=== PATIENT | male | born 1945 | race Caucasian/White ===

== ENCOUNTER 2018-02-08 11:43 | Inpatient (IN) | payer MEDICARE ==
[2018-02-08] MEDS ORDERED: SODIUM CHLORIDE 0.9% 1,000 ML IV STA (12:32)
[2018-02-08] MEDS ORDERED: PANTOPRAZOLE 40 MG/10 ML VIAL IVP STA (12:32)
--- NOTE | 2018-02-08 12:35 | ED ---
General Adult HPI - General Chief complaint: Recheck/Abnormal Lab/Rx Stated complaint: Dehydration Time Seen by Provider: 02/08/18 12:00 Source: patient, RN notes reviewed Mode of arrival: wheelchair Limitations: no limitations - History of Present Illness Initial comments: This is a 72-year-old male who presents emergency department with past medical history of anemia. Patient comes in today because since Tuesday has been extremely lightheaded especially anytime he gets up and walks. Patient states also when he gets up and walks she's short of breath. Patient states he does have a history of anemia and he has noted his stools have been black recently. Patient denies any chest pain but has felt his heart race when he stands up. Patient denies any recent fever chills or cough. Patient denies any headache patient denies numbness weakness. Patient denies abdominal pain patient denies any nausea vomiting or diarrhea. - Related Data Home Medications Medication Instructions Recorded Confirmed Lisinopril [Zestril] 10 mg PO DAILY 08/16/14 02/08/18 Simvastatin [Zocor] 20 mg PO QAM 08/16/14 02/08/18 amLODIPine BESYLATE [Norvasc] 5 mg PO QAM 08/16/14 02/08/18 Allergies Allergy/AdvReac Type Severity Reaction Status Date / Time Sulfa (Sulfonamide Allergy "BLEEDING" Verified 02/08/18 12:57 Antibiotics) Review of Systems ROS Statement: Those systems with pertinent positive or pertinent negative responses have been documented in the HPI. ROS Other: All systems not noted in ROS Statement are negative. Past Medical History Past Medical History: Asthma, GERD/Reflux, Hyperlipidemia, Hypertension Additional Past Medical History / Comment(s): GRACIA'S ESOPHAGUS, Hx. of ANEMIA , History of Any Multi-Drug Resistant Organisms: None Reported Past Surgical History: Cholecystectomy, Tonsillectomy Additional Past Surgical History / Comment(s): HAD PROCEDURES AT [facility] FOR TX OF GRACIA'S ESOPHAGUS-CARINE fundoplication, hydrocele surgery,, Past Anesthesia/Blood Transfusion Reactions: No Reported Reaction Additional Past Anesthesia/Blood Transfusion Reaction / Comment(s): STATED "TWICE AFTER PROCEDURES TO TX GRACIA'S ESOPHAGUS AT [facility] HAD FEELINGS OF BEING HOT AND COLD"-mild per pt Past Psychological History: No Psychological Hx Reported Smoking Status: Former smoker Past Alcohol Use History: Daily Past Drug Use History: None Reported - Past Family History Father Family Medical History: Cancer Additional Family Medical History / Comment(s): colon Mother Family Medical History: Coronary Artery Disease (CAD), CVA/TIA Brother(s) Family Medical History: Cancer General Exam - General Exam Comments Initial Comments: GENERAL: Patient is well-developed and well-nourished. Patient is nontoxic and well- hydrated and is in mild distress. ENT: Neck is soft and supple. No significant lymphadenopathy is noted. Oropharynx is clear. Moist mucous membranes. EYES: Patient's conjunctiva. Extraocular movements were intact and pupils were equal round and reactive to light. Eyelids were unremarkable. PULMONARY: Unlabored respirations. Good breath sounds bilaterally. No audible rales rhonchi or wheezing was noted. CARDIOVASCULAR: Patient's heart rate is tachycardic ABDOMEN: Soft and nontender with normal bowel sounds. No palpable organomegaly was noted. There is no palpable pulsatile mass. SKIN: Patient's skin is pale. NEUROLOGIC: Patient is alert and oriented x3. Cranial nerves II through XII are grossly intact. Motor and sensory are also intact. Normal speech, volume and content. Symmetrical smile. MUSCULOSKELETAL: Normal extremities with adequate strength and full range of motion. No lower extremity swelling or edema. No calf tenderness. LYMPHATICS: No significant lymphadenopathy is noted PSYCHIATRIC: Normal psychiatric evaluation. Limitations: no limitations Course Vital Signs 02/08/18 02/08/18 02/08/18 12:10 12:13 13:13 Temperature 97.5 F L 98.0 F Pulse Rate 115 H 83 111 H Respiratory 18 18 22 Rate Blood Pressure 68/51 103/60 101/57 O2 Sat by Pulse 96 100 100 Oximetry Medical Decision Making - Medical Decision Making EKG shows normal sinus rhythm at 95 bpm NH interval 170 QRS is 92 QT interval 342 QTC is 429. Patient's EKG shows no ST segment elevation or depression or T wave abnormalities I received laboratory results from November 21 in the patient's hemoglobin at that time was 14.8 Patient received 1 unit of packed red blood cells. I spoke with Dr. heard he agreed to admit the patient admitted the patient I consult the GI and I did serial CBCs. - Lab Data Result diagrams: 02/08/18 12:34 02/08/18 12:34 Lab Results 02/08/18 02/08/1802/08/18 Range/Units 12:34 12:34 12:34 WBC 23.6 H (3.8-10.6) k/uL RBC 2.67 L (4.30-5.90) m/uL Hgb 7.9 L (13.0-17.5) gm/dL Hct 23.7 L (39.0-53.0) % MCV 88.6 (80.0-100.0) fL MCH 29.6 (25.0-35.0) pg MCHC 33.4 (31.0-37.0) g/dL RDW 14.0 (11.5-15.5) % Plt Count 328 (150-450) k/uL Neutrophils % 84 % Lymphocytes % 10 % Monocytes % 5 % Eosinophils % 0 % Basophils % 0 % Neutrophils # 19.9 H (1.3-7.7) k/uL Lymphocytes # 2.3 (1.0-4.8) k/uL Monocytes # 1.2 H (0-1.0) k/uL Eosinophils # 0.1 (0-0.7) k/uL Basophils # 0.0 (0-0.2) k/uL PT (9.0-12.0) sec INR (<1.2) APTT (22.0-30.0) sec Sodium (137-145) mmol/L Potassium (3.5-5.1) mmol/L Chloride (98-107) mmol/L Carbon Dioxide (22-30) mmol/L Anion Gap mmol/L BUN (9-20) mg/dL Creatinine (0.66-1.25) mg/dL Est GFR (CKD-EPI)AfAm (>60 ml/min/1.73 sqM) Est GFR (CKD-EPI)NonAf (>60 ml/min/1.73 sqM) Glucose (74-99) mg/dL Calcium (8.4-10.2) mg/dL Magnesium (1.6-2.3) mg/dL Total Bilirubin (0.2-1.3) mg/dL AST (17-59) U/L ALT (21-72) U/L Alkaline Phosphatase (38-126) U/L Total Creatine Kinase 23 L (55-170) U/L CK-MB (CK-2) 0.6 (0.0-2.4) ng/mL CK-MB (CK-2) Rel Index 2.6 Troponin I <0.012 (0.000-0.034) ng/mL Total Protein (6.3-8.2) g/dL Albumin (3.5-5.0) g/dL Stool Occult Blood (Negative) Blood Type B Positive Blood Type Recheck No Antibody Screen NEGATIVE Crossmatch See Detail Spec Expiration Date 02/11/2018233302/08/18 02/08/18 02/08/18 Range/Units 12:34 12:34 13:20 WBC (3.8-10.6) k/uL RBC (4.30-5.90) m/uL Hgb (13.0-17.5) gm/dL Hct (39.0-53.0) % MCV (80.0-100.0) fL MCH (25.0-35.0) pg MCHC (31.0-37.0) g/dL RDW (11.5-15.5) % Plt Count (150-450) k/uL Neutrophils % % Lymphocytes % % Monocytes % % Eosinophils % % Basophils % % Neutrophils # (1.3-7.7) k/uL Lymphocytes # (1.0-4.8) k/uL Monocytes # (0-1.0) k/uL Eosinophils # (0-0.7) k/uL Basophils # (0-0.2) k/uL PT 10.6 (9.0-12.0) sec INR 1.1 (<1.2) APTT 18.2 L (22.0-30.0) sec Sodium 143 (137-145) mmol/L Potassium 4.3 (3.5-5.1) mmol/L Chloride 102 (98-107) mmol/L Carbon Dioxide 18 L (22-30) mmol/L Anion Gap 23 mmol/L BUN 48 H (9-20) mg/dL Creatinine 0.90 (0.66-1.25) mg/dL Est GFR (CKD-EPI)AfAm >90 (>60 ml/min/1.73 sqM) Est GFR (CKD-EPI)NonAf 85 (>60 ml/min/1.73 sqM) Glucose 225 H (74-99) mg/dL Calcium 9.2 (8.4-10.2) mg/dL Magnesium 2.1 (1.6-2.3) mg/dL Total Bilirubin 0.1 L (0.2-1.3) mg/dL AST 20 (17-59) U/L ALT 22 (21-72) U/L Alkaline Phosphatase 47 (38-126) U/L Total Creatine Kinase (55-170) U/L CK-MB (CK-2) (0.0-2.4) ng/mL CK-MB (CK-2) Rel Index Troponin I (0.000-0.034) ng/mL Total Protein 5.8 L (6.3-8.2) g/dL Albumin 3.9 (3.5-5.0) g/dL Stool Occult Blood Positive (Negative) Blood Type Blood Type Recheck Antibody Screen Crossmatch Spec Expiration Date Critical Care Time Critical Care Time: Yes Total Critical Care Time: 35 Disposition Clinical Impression: Anemia, Near syncope, GI bleed Disposition: ADMITTED IP TO THIS [facility] Referrals: Salas Tolbert MD [Primary Care Provider] - 1-2 days Time of Disposition: 13:48
[2018-02-08 12:58] LABS: Basophils % (A) 0 %; Eosinophils # (A) 0.1 k/uL (0-0.7); Eosinophils % (A) 0 %; HCT 23.7 % (39.0-53.0); HGB 7.9 gm/dL (13.0-17.5); Lymphocytes # (A) 2.3 k/uL (1.0-4.8); Lymphocytes % (A) 10 %; MCH 29.6 pg (25.0-35.0); MCHC 33.4 g/dL (31.0-37.0); MCV 88.6 fL (80.0-100.0); Mean Platelet Volume 8.7; Monocytes # (A) 1.2 k/uL (0-1.0); Monocytes % (A) 5 %; Neutrophils # (A) 19.9 k/uL (1.3-7.7); Neutrophils % (A) 84 %; Platelet Count 328 k/uL (150-450); RBC 2.67 m/uL (4.30-5.90); WBC 23.6 k/uL (3.8-10.6)
[2018-02-08 13:03] LABS: ALT 22 U/L (21-72); AST 20 U/L (17-59); Albumin 3.9 g/dL (3.5-5.0); Alkaline Phosphatase 47 U/L (38-126); Anion Gap 23 mmol/L; Blood Urea Nitrogen 48 mg/dL (9-20); Calcium 9.2 mg/dL (8.4-10.2); Carbon Dioxide 18 mmol/L (22-30); Chloride 102 mmol/L (98-107); Glucose 225 mg/dL (74-99); Magnesium 2.1 mg/dL (1.6-2.3); Potassium 4.3 mmol/L (3.5-5.1); Sodium 143 mmol/L (137-145); Total Bilirubin 0.1 mg/dL (0.2-1.3); Total Protein 5.8 g/dL (6.3-8.2)
[2018-02-08 13:10] LABS: INR 1.1 (<1.2); Prothrombin Time 10.6 sec (9.0-12.0)
[2018-02-08 13:13] LABS: Creatine Kinase 23 U/L (55-170)
[2018-02-08 13:22] LABS: Partial Thromboplastin Time 18.2 sec (22.0-30.0)
[2018-02-08 13:26] LABS: Creatine Kinase MB 0.6 ng/mL (0.0-2.4); Troponin I <0.012 ng/mL (0.000-0.034)
[2018-02-08] MEDS ORDERED: SODIUM CHLORIDE 0.9% 1,000 ML IV ONE (13:43)
[2018-02-08] MEDS ORDERED: ACETAMINOPHEN TAB 325 MG TAB PO PRN (15:16)
[2018-02-08] MEDS ORDERED: NALOXONE 0.4 MG/ML 1 ML VIAL IV PRN (15:16)
[2018-02-08] MEDS ORDERED: ONDANSETRON 4 MG/2 ML VIAL IVP PRN (15:16)
--- NOTE | 2018-02-08 15:31 | P.HPIM ---
History of Present Illness H&P Date: 02/08/18 Chief Complaint: Weakness 72-year-old male with history of multiple medical problems including hypertension and hyperlipidemia, presented to emergency department because of 2- 3 days history of general weakness, feeling tired the whole time, palpitations, shortness of breath and feeling dizzy. Dizziness is like a lightheadedness sensation and it occurs anytime he gets up and walks. He also had some intermittent left-sided chest pain as well. Since Tuesday he had 2 bowel movements that were black. He also felt slightly nauseous but no vomiting. No abdominal pain. No diarrhea. No recent fevers or chills, no cough. Patient denies any recent fever chills or cough. No focal weakness or numbness. Review of Systems 12 point review of system performed, negative except HPI Past Medical History Past Medical History: Asthma, GERD/Reflux, Hyperlipidemia, Hypertension Additional Past Medical History / Comment(s): GRACIA'S ESOPHAGUS, Hx. of ANEMIA , History of Any Multi-Drug Resistant Organisms: None Reported Past Surgical History: Cholecystectomy, Tonsillectomy Additional Past Surgical History / Comment(s): HAD PROCEDURES AT [facility] FOR TX OF GRACIA'S ESOPHAGUS ablation/dilation. Followed by CARINE fundoplication, hydrocele surgery, Past Anesthesia/Blood Transfusion Reactions: No Reported Reaction Additional Past Anesthesia/Blood Transfusion Reaction / Comment(s): STATED "TWICE AFTER PROCEDURES TO TX GRACIA'S ESOPHAGUS AT [facility] HAD FEELINGS OF BEING HOT AND COLD"-mild per pt Past Psychological History: No Psychological Hx Reported Smoking Status: Former smoker Past Alcohol Use History: Daily Past Drug Use History: None Reported - Past Family History Father Family Medical History: Cancer Additional Family Medical History / Comment(s): colon Mother Family Medical History: Coronary Artery Disease (CAD), CVA/TIA Brother(s) Family Medical History: Cancer Medications and Allergies Home Medications Medication Instructions Recorded Confirmed Type Lisinopril [Zestril] 10 mg PO DAILY 08/16/14 02/08/18 History Simvastatin [Zocor] 20 mg PO QAM 08/16/14 02/08/18 History amLODIPine BESYLATE [Norvasc] 5 mg PO QAM 08/16/14 02/08/18 History Allergies Allergy/AdvReac Type Severity Reaction Status Date / Time Sulfa (Sulfonamide Allergy "BLEEDING" Verified 02/08/18 12:57 Antibiotics) Physical Exam Vitals: Vital Signs Temp Pulse Resp BP Pulse Ox 02/08/18 14:59 98.8 F 82 20 98/56 98 02/08/18 14:29 989.9 F H 89 20 100/56 02/08/18 14:19 97.6 F 88 18 103/55 100 02/08/18 14:00 88 20 98/54 99 02/08/18 13:13 98.0 F 111 H 22 101/57 100 02/08/18 12:13 83 18 103/60 100 02/08/18 12:10 97.5 F L 115 H 18 68/51 96 Intake and Output 02/08/18 02/08/18 02/08/18 06:59 14:59 22:59 Intake Total 0 Balance 0 Intake: Blood Product 0 Rc As-1 Unit 0 [id number] Other: Weight 69.4 kg Constitutional: No acute distress, conversant, pleasant Eyes:Anicteric sclerae, moist conjunctiva, no lid-lag, PERRLA, ENMT: Oropharynx clear, no erythema, exudates Neck: Supple, FROM, no masses, or JVD, No carotid bruits, No thyromegaly Lungs: Clear to auscultation, Clear to percussion, Normal respiratory effort, no accessory muscle use Cardiovascular: Heart regular in rate and rhythm, No murmurs, gallops, or rubs, No peripheral edema Abdominal: Soft, Nontender, no guarding, rebound or rigidity, Normoactive bowel sounds, No hepatomegaly, No splenomegaly, No palpable mass Skin: Normal temperature, tone, texture, turgor, no induration, No subcutaneous nodules, No rash, lesions, No ulcers Extremities: No digital cyanosis, No clubbing, Pedal pulses intact and symmetrical, Radial pulses intact and symmetrical, No calf tenderness Psychiatric: Alert and oriented to person, place and time, appropriate affect, intact judgement Neuro: Muscles Strength 5/5 in all 4 extremities, Sensation to light touch grossly present throughout, Cranial nerves II-XII grossly intact, no focal sensory deficits Results CBC & Chem 7: 02/08/18 12:34 02/08/18 12:34 Labs: Abnormal Lab Results - Last 24 Hours (Table) 02/08/18 02/08/18 02/08/18 Range/Units 12:34 12:34 12:34 WBC 23.6 H (3.8-10.6) k/uL RBC 2.67 L (4.30-5.90) m/uL Hgb 7.9 L (13.0-17.5) gm/dL Hct 23.7 L (39.0-53.0) % Neutrophils # 19.9 H (1.3-7.7) k/uL Monocytes # 1.2 H (0-1.0) k/uL APTT (22.0-30.0) sec Carbon Dioxide (22-30) mmol/L BUN (9-20) mg/dL Glucose (74-99) mg/dL Total Bilirubin (0.2-1.3) mg/dL Total Creatine Kinase 23 L (55-170) U/L Total Protein (6.3-8.2) g/dL Crossmatch See Detail 02/08/18 02/08/18 Range/Units 12:34 12:34 WBC (3.8-10.6) k/uL RBC (4.30-5.90) m/uL Hgb (13.0-17.5) gm/dL Hct (39.0-53.0) % Neutrophils # (1.3-7.7) k/uL Monocytes # (0-1.0) k/uL APTT 18.2 L (22.0-30.0) sec Carbon Dioxide 18 L (22-30) mmol/L BUN 48 H (9-20) mg/dL Glucose 225 H (74-99) mg/dL Total Bilirubin 0.1 L (0.2-1.3) mg/dL Total Creatine Kinase (55-170) U/L Total Protein 5.8 L (6.3-8.2) g/dL Crossmatch Assessment and Plan Plan: Acute GI bleeding/acute blood loss anemia Source is unknown Currently being transfused 1 unit of blood, follow hemoglobin after that to assess for need for more blood. Consult GI IV fluids Cycle H&H Protonic 40 mg IV twice a day Chest pain/shortness of breath Check troponin stat EKG reviewed, no signs of ischemia Hypertension/hyperlipidemia Patient is nothing by mouth, hold meds We'll treat hypertension with IV medications if needed
[2018-02-08] MEDS: SODIUM CHLORIDE 0.9% 1,000 ML IV SCH (20:39)
[2018-02-08 21:00] LABS: Basophils % (A) 0 %; Eosinophils # (A) 0.1 k/uL (0-0.7); Eosinophils % (A) 0 %; HCT 24.6 % (39.0-53.0); HGB 8.3 gm/dL (13.0-17.5); Lymphocytes # (A) 1.5 k/uL (1.0-4.8); Lymphocytes % (A) 10 %; MCH 30.5 pg (25.0-35.0); MCV 89.6 fL (80.0-100.0); Monocytes # (A) 0.7 k/uL (0-1.0); Monocytes % (A) 4 %; Neutrophils # (A) 13.2 k/uL (1.3-7.7); Neutrophils % (A) 85 %; Platelet Count 225 k/uL (150-450); RBC 2.74 m/uL (4.30-5.90); RDW 14.4 % (11.5-15.5); WBC 15.5 k/uL (3.8-10.6)
[2018-02-08] MEDS: PANTOPRAZOLE 40 MG/10 ML VIAL IV SCH (21:19)
[2018-02-09 02:20] LABS: Basophils % (A) 0 %; Eosinophils % (A) 0 %; HCT 21.8 % (39.0-53.0); HGB 7.4 gm/dL (13.0-17.5); Lymphocytes # (A) 1.8 k/uL (1.0-4.8); Lymphocytes % (A) 14 %; MCHC 33.8 g/dL (31.0-37.0); MCV 88.7 fL (80.0-100.0); Mean Platelet Volume 9.1; Monocytes # (A) 0.8 k/uL (0-1.0); Monocytes % (A) 6 %; Neutrophils # (A) 10.7 k/uL (1.3-7.7); Neutrophils % (A) 79 %; Platelet Count 194 k/uL (150-450); RBC 2.45 m/uL (4.30-5.90); RDW 14.6 % (11.5-15.5); WBC 13.5 k/uL (3.8-10.6)
[2018-02-09 03:00] LABS: ALT 23 U/L (21-72); AST 15 U/L (17-59); Albumin 2.8 g/dL (3.5-5.0); Alkaline Phosphatase 34 U/L (38-126); Anion Gap 8 mmol/L; Blood Urea Nitrogen 28 mg/dL (9-20); Calcium 8.3 mg/dL (8.4-10.2); Carbon Dioxide 23 mmol/L (22-30); Chloride 109 mmol/L (98-107); Glucose 123 mg/dL (74-99); Magnesium 2.2 mg/dL (1.6-2.3); Phosphorus 3.4 mg/dL (2.5-4.5); Potassium 4.1 mmol/L (3.5-5.1); Sodium 140 mmol/L (137-145); Total Bilirubin <0.1 mg/dL (0.2-1.3); Total Protein 4.7 g/dL (6.3-8.2)
[2018-02-09] MEDS: SODIUM CHLORIDE 0.9% 1,000 ML IV SCH ×3 (03:00→19:56)
[2018-02-09 06:13] LABS: Basophils % (A) 0 %; Eosinophils % (A) 0 %; HCT 21.8 % (39.0-53.0); HGB 7.2 gm/dL (13.0-17.5); Lymphocytes # (A) 1.8 k/uL (1.0-4.8); Lymphocytes % (A) 14 %; MCH 29.9 pg (25.0-35.0); MCV 90.5 fL (80.0-100.0); Mean Platelet Volume 7.9; Monocytes # (A) 0.8 k/uL (0-1.0); Monocytes % (A) 7 %; Neutrophils # (A) 10.1 k/uL (1.3-7.7); Neutrophils % (A) 78 %; Platelet Count 201 k/uL (150-450); RBC 2.41 m/uL (4.30-5.90); RDW 14.7 % (11.5-15.5)
[2018-02-09] MEDS: PANTOPRAZOLE 40 MG/10 ML VIAL IV SCH ×2 (08:05→19:56)
--- NOTE | 2018-02-09 09:48 | P.CONS ---
History of Present Illness - Reason for Consult Consult date: 02/09/18 Anemia melena Requesting physician: Kitty Cali - History of Present Illness 72-year-old male with a history of Inés fundal dictation, Gracia's esophagus ablation therapy [facility], anemia, asthma, diaphragmatic hernia repair presents with black colored bowel movements for the last 2 days as well as increased weakness lightheadedness. Patient noticed 2 days ago passage of dark near black bowel movements. Denies hematemesis or hematochezia. Last EGD 18 months ago performed by Dr. Vickers. No NSAIDs. Drinks a few beers daily. Last colonoscopy 2013 at [facility] perform a Dr. Jones to his memory was normal recommend rescreening in 2019. Review of medical records [facility] [place] [facility] hemoglobin was 14.8 on 09/2018. MCV 91. Platelet 299. Admission hemoglobin 7.9 presently 7.2. BUN 28. Creatinine 0.7. He's received 1 unit of blood. Denies abdominal pain fever chills or weight loss. Review of Systems Constitutional: Denies fever, chills, sweats, weight gain, or loss. Reports lightheadedness dizziness weakness. HEENT: Negative for migraines, blurred vision or loss, earaches, drainage, tinnitus, oral mucosal lesions, dysphagia, or odynophagia. Cardiac: Negative for chest pain, arrhythmias, or palpitation. Respiratory: Asthma. Negative for shortness of breath, hemoptysis, cough, or sputum production. Gastrointestinal: See HPI for pertinent findings. Genitourinary: Negative for hematuria, urgency, frequency, polyuria, dysuria, or penile discharge. Musculoskeletal: Negative for muscle aches, swelling, arthritis, and arthralgias. Neurologic: Negative for stroke or TIA. Endocrine: Negative for thyroid problems. Skin: Negative for rash or itching. Psychiatric: Negative history for depression and anxiety Past Medical History Past Medical History: Asthma, GERD/Reflux, Hyperlipidemia, Hypertension, Prostate Disorder Additional Past Medical History / Comment(s): GRACIA'S ESOPHAGUS,recurrent diaphragmatic hernia,Hx of ANEMIA,past gout,beginnings of cataracts History of Any Multi-Drug Resistant Organisms: None Reported Past Surgical History: Cholecystectomy, Tonsillectomy Additional Past Surgical History / Comment(s): AT [facility] FOR TX OF GRACIA'S ESOPHAGUS (ablation/dilation).diaphragmatic hernia/ INÉS fundoplication, hydrocele surgery,2015 had lap lysis of adhesions ,takedown of inés funoplasty ,lap paraesophageal diapragmatic hernia repair,lap inés fundplasty.egd Past Anesthesia/Blood Transfusion Reactions: No Reported Reaction Additional Past Anesthesia/Blood Transfusion Reaction / Comm: STATED "TWICE AFTER PROCEDURES TO TX GRACIA'S ESOPHAGUS AT [facility] HAD FEELINGS OF BEING HOT AND COLD"-mild per pt Smoking Status: Former smoker - Past Family History Father Family Medical History: Cancer Additional Family Medical History / Comment(s): colon Mother Family Medical History: Coronary Artery Disease (CAD), CVA/TIA Brother(s) Family Medical History: Cancer Medications and Allergies Home Medications Medication Instructions Recorded Confirmed Type Lisinopril [Zestril] 10 mg PO DAILY 08/16/14 02/08/18 History Simvastatin [Zocor] 20 mg PO QAM 08/16/14 02/08/18 History amLODIPine BESYLATE [Norvasc] 5 mg PO QAM 08/16/14 02/08/18 History Allergies Allergy/AdvReac Type Severity Reaction Status Date / Time Sulfa (Sulfonamide Allergy "BLEEDING" Verified 02/08/18 12:57 Antibiotics) Physical Exam Vitals: Vital Signs Temp Pulse Pulse Resp BP BP Pulse Ox 02/09/18 04:00 98.4 F 71 18 110/59 97 02/09/18 00:00 67 18 106/55 100 02/08/18 20:00 98.6 F 69 18 103/56 95 02/08/18 18:29 76 18 117/69 100 02/08/18 17:30 99.0 F 81 20 98/56 02/08/18 14:59 98.8 F 82 20 98/56 98 02/08/18 14:29 989.9 F H 89 20 100/56 02/08/18 14:19 97.6 F 88 18 103/55 100 02/08/18 14:00 88 20 98/54 99 02/08/18 13:13 98.0 F 111 H 22 101/57 100 02/08/18 12:13 83 18 103/60 100 02/08/18 12:10 97.5 F L 115 H 18 68/51 96 Intake and Output 02/08/18 02/09/1802/09/18 22:59 06:59 14:59 Intake Total 310 Output Total 250 Balance 310 -250 Intake: Blood Product 310 Rc As-1 Unit 310 [id number] Output: Urine 250 Other: Voiding Method Urinal Urinal # Voids 1 0 # Bowel Movements 0 Weight 69.5 kg General appearance: The patient is alert, oriented, in no acute distress. HET: Head is normocephalic and atraumatic. Pupils are equal and reactive. Oropharynx is clear without lesions. Neck: Supple without lymphadenopathy. Trachea midline. Heart: S1 S2. Regular rate and rhythm. Lungs: No crackles or wheezes are heard. Abdomen: Soft, nontender, nondistended with bowel sounds. No peritoneal signs. No palpable organomegaly or masses. Extremities: Normal skin color and turgor. No cyanosis, rash, ulceration, clubbing, or edema. Radial and pedal pulses are 2/4 bilaterally. Neurological: No focal deficits. Strength and sensation are grossly intact. Results CBC & Chem 7: 02/09/18 05:40 02/09/18 02:05 Labs: Abnormal Lab Results - Last 24 Hours (Table) 02/08/18 02/08/18 02/08/18 Range/Units 12:34 12:34 12:34 WBC 23.6 H (3.8-10.6) k/uL RBC 2.67 L (4.30-5.90) m/uL Hgb 7.9 L (13.0-17.5) gm/dL Hct 23.7 L (39.0-53.0) % Neutrophils # 19.9 H (1.3-7.7) k/uL Monocytes # 1.2 H (0-1.0) k/uL APTT (22.0-30.0) sec Chloride (98-107) mmol/L Carbon Dioxide (22-30) mmol/L BUN (9-20) mg/dL Glucose (74-99) mg/dL Calcium (8.4-10.2) mg/dL Total Bilirubin (0.2-1.3) mg/dL AST (17-59) U/L Alkaline Phosphatase (38-126) U/L Total Creatine Kinase 23 L (55-170) U/L Total Protein (6.3-8.2) g/dL Albumin (3.5-5.0) g/dL Crossmatch See Detail 02/08/18 02/08/18 02/08/18 Range/Units 12:34 12:34 20:19 WBC 15.5 H (3.8-10.6) k/uL RBC 2.74 L (4.30-5.90) m/uL Hgb 8.3 L (13.0-17.5) gm/dL Hct 24.6 L (39.0-53.0) % Neutrophils # 13.2 H (1.3-7.7) k/uL Monocytes # (0-1.0) k/uL APTT 18.2 L (22.0-30.0) sec Chloride (98-107) mmol/L Carbon Dioxide 18 L (22-30) mmol/L BUN 48 H (9-20) mg/dL Glucose 225 H (74-99) mg/dL Calcium (8.4-10.2) mg/dL Total Bilirubin 0.1 L (0.2-1.3) mg/dL AST (17-59) U/L Alkaline Phosphatase (38-126) U/L Total Creatine Kinase (55-170) U/L Total Protein 5.8 L (6.3-8.2) g/dL Albumin (3.5-5.0) g/dL Crossmatch 02/09/18 02/09/18 02/09/18 Range/Units 02:05 02:05 05:40 WBC 13.5 H 13.0 H (3.8-10.6) k/uL RBC 2.45 L 2.41 L (4.30-5.90) m/uL Hgb 7.4 L 7.2 L (13.0-17.5) gm/dL Hct 21.8 L 21.8 L (39.0-53.0) % Neutrophils # 10.7 H 10.1 H (1.3-7.7) k/uL Monocytes # (0-1.0) k/uL APTT (22.0-30.0) sec Chloride 109 H (98-107) mmol/L Carbon Dioxide (22-30) mmol/L BUN 28 H (9-20) mg/dL Glucose 123 H (74-99) mg/dL Calcium 8.3 L (8.4-10.2) mg/dL Total Bilirubin <0.1 L (0.2-1.3) mg/dL AST 15 L (17-59) U/L Alkaline Phosphatase 34 L (38-126) U/L Total Creatine Kinase (55-170) U/L Total Protein 4.7 L (6.3-8.2) g/dL Albumin 2.8 L (3.5-5.0) g/dL Crossmatch Assessment and Plan (1) GI bleed Narrative/Plan: possible peptic ulcer disease possible erosive gastritis esophagitis Current Visit: Yes Status: Acute Code(s): K92.2 - GASTROINTESTINAL HEMORRHAGE, UNSPECIFIED SNOMED Code(s): 87673976 (2) Acute blood loss anemia Current Visit: Yes Status: Acute Code(s): D62 - ACUTE POSTHEMORRHAGIC ANEMIA SNOMED Code(s): 789716174 (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 EGD evaluation. Protonix 40 mg twice daily. CBC monitoring. The hair colorist has discussed the risks, benefits and alternative therapies for the above-mentioned procedure and for both sedation/analgesia as well as necessary blood product administration, if indicated, as they pertain to this patient. The patient has indicated understanding and acceptance of the risks and procedures discussed. Thank you for this kind referral and the opportunity to participate in the care of your patient. This consultation was discussed with Dr. Goldberg. The impression and plan of care have been directed as dictated.
[2018-02-09 14:32] LABS: Basophils % (A) 0 %; Eosinophils % (A) 0 %; HGB 7.1 gm/dL (13.0-17.5); Lymphocytes % (A) 18 %; MCH 30.7 pg (25.0-35.0); MCV 90.5 fL (80.0-100.0); Mean Platelet Volume 7.5; Monocytes # (A) 0.6 k/uL (0-1.0); Monocytes % (A) 6 %; Neutrophils # (A) 8.2 k/uL (1.3-7.7); Neutrophils % (A) 75 %; Platelet Count 206 k/uL (150-450); RBC 2.32 m/uL (4.30-5.90); RDW 15.1 % (11.5-15.5)
--- NOTE | 2018-02-09 15:18 | P.PN ---
Subjective Progress Note Date: 02/09/18 (Delayed charting patient seen at approximately 9 AM) Principal diagnosis: Melena Patient is a 72-year-old male past medical history of Louis's esophagus status post ablation, GERD status post Al fundoplication 2 not currently on any medications, prior GI bleed, hypertension, and asthma who presented to the emergency department with complaints of lightheaded and dizziness. In the ER he underwent an extensive evaluation. On arrival he was tachycardic with a pulse of 1:15 and hypotensive the blood pressure of 68/51. Initial laboratory analysis revealed slight leukocytosis at 15.5 with a hemoglobin of 8.3. Otherwise laboratory analysis was within normal limits. He was transfused 1 unit of packed red blood cells on IV proton aches. He was admitted to the selective care unit for further monitoring. His symptoms resolved despite having slightly lower hemoglobin after 1 unit of packed red cells. Patient seen and examined at bedside. He denies any chest pain, shortness of breath, nausea, or vomiting. He does not feel lightheaded or dizzy. He states last and had a GI bleed was due to Louis's esophagus has not seen Dr. Rodriguez Or Ned in the past. Dr. Vickers performed two Al fundoplications but those were years ago. He has no other complaints currently. Objective - Vital Signs Vital signs: Vital Signs Temp 98.4 F 02/09/18 04:00 Pulse 69 02/09/18 12:00 Resp 17 02/09/18 12:00 BP 110/58 02/09/18 12:00 Pulse Ox 98 02/09/18 12:00 Intake & Output 02/08/18 02/09/18 02/09/18 18:59 06:59 18:59 Intake Total 310 Output Total 250 300 Balance 310 -250 -300 Weight 69.4 kg 69.5 kg Intake: Blood Product 310 Rc As-1 Unit 310 [id number] Output: Urine 250 300 Other: Voiding Method Urinal # Voids 1 0 1 # Bowel Movements 0 0 - Exam General: non toxic, no distress, appears at stated age, pleasant Derm: warm, dry Head: atraumatic, normocephalic, symmetric Eyes: EOMI, no lid lag, anicteric sclera Mouth: no lip lesion, mucus membranes moist Cardiovascular: S1S2 reg, no murmur, positive posterior tibial pulse bilateral, Lungs: CTA bilateral, no rhonchi, no rales , no accessory muscle use Abdominal: soft, nontender to palpation, no guarding, no appreciable organomegaly Ext: no gross muscle atrophy, no edema, no contractures Neuro: CN II-XI grossly intact, no focal neuro deficits Psych: Alert, oriented, appropriate affect - Labs CBC & Chem 7: 02/09/18 14:09 02/09/18 02:05 Labs: Abnormal Lab Results - Last 24 Hours (Table) 02/08/18 02/08/18 02/09/18 Range/Units 12:34 20:19 02:05 WBC 15.5 H 13.5 H (3.8-10.6) k/uL RBC 2.74 L 2.45 L (4.30-5.90) m/uL Hgb 8.3 L 7.4 L (13.0-17.5) gm/dL Hct 24.6 L 21.8 L (39.0-53.0) % Neutrophils # 13.2 H 10.7 H (1.3-7.7) k/uL Chloride (98-107) mmol/L BUN (9-20) mg/dL Glucose (74-99) mg/dL Calcium (8.4-10.2) mg/dL Total Bilirubin (0.2-1.3) mg/dL AST (17-59) U/L Alkaline Phosphatase (38-126) U/L Total Protein (6.3-8.2) g/dL Albumin (3.5-5.0) g/dL Crossmatch See Detail 02/09/18 02/09/18 02/09/18 Range/Units 02:05 05:40 14:09 WBC 13.0 H 11.0 H (3.8-10.6) k/uL RBC 2.41 L 2.32 L (4.30-5.90) m/uL Hgb 7.2 L 7.1 L (13.0-17.5) gm/dL Hct 21.8 L 21.0 L (39.0-53.0) % Neutrophils # 10.1 H 8.2 H (1.3-7.7) k/uL Chloride 109 H (98-107) mmol/L BUN 28 H (9-20) mg/dL Glucose 123 H (74-99) mg/dL Calcium 8.3 L (8.4-10.2) mg/dL Total Bilirubin <0.1 L (0.2-1.3) mg/dL AST 15 L (17-59) U/L Alkaline Phosphatase 34 L (38-126) U/L Total Protein 4.7 L (6.3-8.2) g/dL Albumin 2.8 L (3.5-5.0) g/dL Crossmatch Assessment and Plan Assessment: GI bleed -Continue with Protonix -Nothing by mouth -Serial H&H -Await GI consultation Acute blood loss anemia due to above-symptomatic -Status post 1 unit packed red blood cells -Continue with serial H&H Hypertension -Norvasc and lisinopril on hold due to low blood pressure ER Dyslipidemia -Statin on hold due to nothing by mouth status History of Louis's esophagus -GI recommendations DVT prophylaxis: SCDs Discussed with: Patient, nursing Anticipated discharge: 2-[address]: home A total of 35 minutes was spent on the care of this complex patient more than 50 % of the time was spent in counseling and care coordination.
[2018-02-09] MEDS ORDERED: PROPOFOL 10 MG/ML 20 ML VIAL IV ONE (15:48)
[2018-02-09] MEDS ORDERED: LIDOCAINE 1% INJ 10MG/ML (20 ML MDV) ONE (15:48)
[2018-02-09] MEDS ORDERED: IV FLUID CONTINUATION 950 ML IV ONE (15:52)
--- NOTE | 2018-02-09 16:33 | P.PCN ---
Date of Procedure: 02/09/18 Procedure(s) Performed: Procedure: Esophagogastroduodenoscopy and biopsy. Preoperative diagnosis: GI bleeding. Postoperative diagnosis: 1. Mild gastritis and duodenitis but no ulcers or active bleeding. 2. Long segment of Louis's esophagus with no obvious ulcers or strictures. Preparation sedation: Was provided by anesthesia. Brief clinical history: The patient is a 72-year-old male with history of Al fundoplication, Louis's esophagus S/P ablation therapy, anemia, asthma , and diaphragmatic hernia repair presents with black colored bowel movements for the last 2 days as well as increased weakness and lightheadedness. Patient noticed 2 days ago passage of dark near black bowel movements. Denies hematemesis or hematochezia. Last EGD 18 months ago performed by Dr. Quintana. No NSAIDs. Drinks a few beers daily. Last colonoscopy 2013 at [facility] performed by Dr. Jones and was recommend rescreening in 2019. Hb was 14.8 on 11/21/2017. MCV 91. Platelet 299. Admission hemoglobin 7.9 dropped to 7.2. BUN 28. Creatinine 0.7. He has received 1 unit of blood. Denies abdominal pain, fever, chills or weight loss. I retroflexed in his as summarized in the history and physical and dictated consultations and progress notes. Procedure: With the patient on his left lateral decubitus position and after informed consent and adequate sedation, I passed the Olympus-GIF 160 video upper endoscope through the cricopharyngeus down the esophagus. The mandi-GE junction was noted around 24-25 cm from the incisors and the tubular esophagus continued for 10 cm defining a long segment of Louis's esophagus. The esophagus did not show any other abnormalities. There was a hiatal hernia then the endoscope was passed into the stomach which was insufflated with air and inspected in detail including the retroflex view in the cardia. There was minimal mottling and erythema in the antrum but no ulcers or erosions. Pyloric channel did not show any ulcers. Duodenal bulb showed some erythema and minimal friability without any ulcers or erosions. Post bulbar area and descending duodenum appeared within normal limits. I obtained biopsies from the antrum and the Louis's segment then the endoscope was withdrawn. The patient tolerated the procedure well. Plan: I discussed the findings with the patient and his . Will allow diet and continue to monitor his blood counts. Further evaluation of the small bowel and colon would be considered based on his course especially in light of the profound anemia in the absence of significant findings of this exam today. I will discuss with you and we will continue to follow with you with interest.
[2018-02-09 20:41] LABS: Basophils % (A) 0 %; Eosinophils % (A) 0 %; HCT 20.6 % (39.0-53.0); Lymphocytes # (A) 2.1 k/uL (1.0-4.8); Lymphocytes % (A) 23 %; MCH 30.4 pg (25.0-35.0); MCHC 33.3 g/dL (31.0-37.0); MCV 91.3 fL (80.0-100.0); Mean Platelet Volume 7.3; Monocytes # (A) 0.5 k/uL (0-1.0); Monocytes % (A) 5 %; Neutrophils # (A) 6.3 k/uL (1.3-7.7); Neutrophils % (A) 70 %; Platelet Count 205 k/uL (150-450); RBC 2.25 m/uL (4.30-5.90); RDW 15.1 % (11.5-15.5)
[2018-02-09 20:48] LABS: HGB 6.8 gm/dL (13.0-17.5)
[2018-02-10 02:41] LABS: Basophils % (A) 0 %; Eosinophils # (A) 0.1 k/uL (0-0.7); Eosinophils % (A) 1 %; Lymphocytes # (A) 1.8 k/uL (1.0-4.8); Lymphocytes % (A) 23 %; MCH 29.7 pg (25.0-35.0); MCHC 32.6 g/dL (31.0-37.0); MCV 91.2 fL (80.0-100.0); Monocytes # (A) 0.5 k/uL (0-1.0); Monocytes % (A) 6 %; Neutrophils # (A) 5.4 k/uL (1.3-7.7); Neutrophils % (A) 69 %; Platelet Count 194 k/uL (150-450); RBC 2.14 m/uL (4.30-5.90); WBC 7.8 k/uL (3.8-10.6)
[2018-02-10 02:49] LABS: Anion Gap 7 mmol/L; Blood Urea Nitrogen 18 mg/dL (9-20); Calcium 8.2 mg/dL (8.4-10.2); Carbon Dioxide 24 mmol/L (22-30); Chloride 110 mmol/L (98-107); Glucose 95 mg/dL (74-99); Potassium 3.8 mmol/L (3.5-5.1); Sodium 141 mmol/L (137-145)
[2018-02-10 03:09] LABS: HGB 6.4 gm/dL (13.0-17.5)
[2018-02-10 03:10] LABS: HCT 19.5 % (39.0-53.0)
[2018-02-10] MEDS: PANTOPRAZOLE 40 MG/10 ML VIAL IV SCH (08:30)
[2018-02-10 08:33] VITALS: RESP 18
--- NOTE | 2018-02-10 09:42 | P.PN ---
Subjective Progress Note Date: 02/10/18 Principal diagnosis: Melena Patient is a 72-year-old male past medical history of Louis's esophagus status post ablation, GERD status post Al fundoplication 2 not currently on any medications, prior GI bleed, hypertension, and asthma who presented to the emergency department with complaints of lightheaded and dizziness. In the ER he underwent an extensive evaluation. On arrival he was tachycardic with a pulse of 1:15 and hypotensive the blood pressure of 68/51. Initial laboratory analysis revealed slight leukocytosis at 15.5 with a hemoglobin of 8.3. Otherwise laboratory analysis was within normal limits. He was transfused 1 unit of packed red blood cells on IV proton aches. He was admitted to the selective care unit for further monitoring. His symptoms resolved despite having slightly lower hemoglobin after 1 unit of packed red cells. His hemoglobin continued to down trend despite no additional bowel movements and he had one additional unit of pRBC. Patient seen and examined at bedside. No chest pain, shortness of breath, nausea, or vomiting. Has not had any additional bowel movements. No abdominal pain. Has not struggled with anemia in the past other than near his Al fundoplication. He has never had a reaction to blood in the past. He denies any night sweats, weight loss, weight gain, or decreased appetite. Objective - Vital Signs Vital signs: Vital Signs Temp 98.3 F 02/10/18 08:00 Pulse 76 02/10/18 08:00 Resp 18 02/10/18 08:00 BP 112/53 02/10/18 08:00 Pulse Ox 99 02/10/18 08:00 Intake & Output 02/09/18 02/10/18 02/10/18 18:59 06:59 18:59 Intake Total 790 1600 200 Output Total 300 Balance 490 1600 200 Weight 72 kg Intake: IV 550 1600 Sodium Chloride 0.9% 1, 1600 000 ml @ 100 mls/hr IV . Q10H ANGELA Rx#:[id number] Oral 240 200 Blood Product 0 0 Rc As-1 Unit 0 0 [id number] Output: Urine 300 Other: Voiding Method Urinal # Voids 1 1 1 # Bowel Movements 0 - Exam General: non toxic, no distress, appears at stated age, pleasant Derm: warm, dry Head: atraumatic, normocephalic, symmetric Eyes: EOMI, no lid lag, anicteric sclera Mouth: no lip lesion, mucus membranes moist Cardiovascular: S1S2 reg, no murmur, positive posterior tibial pulse bilateral, Lungs: CTA bilateral, no rhonchi, no rales , no accessory muscle use Abdominal: soft, nontender to palpation, no guarding, no appreciable organomegaly Ext: no gross muscle atrophy, no edema, no contractures Neuro: CN II-XI grossly intact, no focal neuro deficits Psych: Alert, oriented, appropriate affect - Labs CBC & Chem 7: 02/10/18 02:21 02/10/18 02:21 Labs: Abnormal Lab Results - Last 24 Hours (Table) 02/08/18 02/09/18 02/09/18 Range/Units 12:34 14:09 20:16 WBC 11.0 H (3.8-10.6) k/uL RBC 2.32 L 2.25 L (4.30-5.90) m/uL Hgb 7.1 L 6.8 L* (13.0-17.5) gm/dL Hct 21.0 L 20.6 L (39.0-53.0) % Neutrophils # 8.2 H (1.3-7.7) k/uL Chloride (98-107) mmol/L Calcium (8.4-10.2) mg/dL Crossmatch See Detail 02/10/18 02/10/18 Range/Units 02:21 02:21 WBC (3.8-10.6) k/uL RBC 2.14 L (4.30-5.90) m/uL Hgb 6.4 L* (13.0-17.5) gm/dL Hct 19.5 L* (39.0-53.0) % Neutrophils # (1.3-7.7) k/uL Chloride 110 H (98-107) mmol/L Calcium 8.2 L (8.4-10.2) mg/dL Crossmatch Assessment and Plan Assessment: GI bleed -EGD with no ulcers or sings of bleeding -Continue with Protonix - on regular diet -Serial H&H -GI recs appreciated, d/w Anjelica robertson colonoscopy as inpatient Acute blood loss anemia due to above-symptomatic -Status post 2 unit packed red blood cells -Continue with serial H&H Hypertension -Norvasc and lisinopril on hold due to low blood pressure ER Dyslipidemia -Statin History of Louis's esophagus -GI recommendations DVT prophylaxis: SCDs Discussed with: Patient, nursing, Anjelica Head Anticipated discharge: 2-[address]: home A total of 35 minutes was spent on the care of this complex patient more than 50 % of the time was spent in counseling and care coordination.
[2018-02-10] MEDS ORDERED: BISACODYL 5 MG TABLET.DR PO STA (10:02)
--- NOTE | 2018-02-10 10:06 | P.PN ---
Subjective Progress Note Date: 02/10/18 Principal diagnosis: GI bleed anemia melena Status post EGD yesterday for evaluation of melena symptomatic anemia with no evidence of peptic ulcer disease or sources of bleeding. No further episodes of melena however hemoglobin decreased to 6.4 today. Receiving 1 unit of blood for total of 2 units of blood since admission. Denies abdominal pain. Objective - Vital Signs Vital signs: Vital Signs Temp 98.3 F 02/10/18 08:00 Pulse 76 02/10/18 08:00 Resp 18 02/10/18 08:00 BP 112/53 02/10/18 08:00 Pulse Ox 99 02/10/18 08:00 Intake & Output 02/09/18 02/10/18 02/10/18 18:59 06:59 18:59 Intake Total 790 1600 200 Output Total 300 Balance 490 1600 200 Weight 72 kg Intake: IV 550 1600 Sodium Chloride 0.9% 1, 1600 000 ml @ 100 mls/hr IV . Q10H ANGELA Rx#:[id number] Oral 240 200 Blood Product 0 0 Rc As-1 Unit 0 0 [id number] Output: Urine 300 Other: Voiding Method Urinal # Voids 1 1 1 # Bowel Movements 0 - Exam General appearance: The patient is alert, oriented, in no acute distress. HET: Head is normocephalic and atraumatic. Pupils are equal and reactive. Oropharynx is clear without lesions. Neck: Supple without lymphadenopathy. Trachea midline. Heart: S1 S2. Regular rate and rhythm. Lungs: No crackles or wheezes are heard. Abdomen: Soft, nontender, nondistended with bowel sounds. No peritoneal signs. No palpable organomegaly or masses. Extremities: Normal skin color and turgor. No cyanosis, rash, ulceration, clubbing, or edema. Radial and pedal pulses are 2/4 bilaterally. Neurological: No focal deficits. Strength and sensation are grossly intact. - Labs CBC & Chem 7: 02/10/18 02:21 02/10/18 02:21 Labs: Abnormal Lab Results - Last 24 Hours (Table) 02/08/18 02/09/18 02/09/18 Range/Units 12:34 14:09 20:16 WBC 11.0 H (3.8-10.6) k/uL RBC 2.32 L 2.25 L (4.30-5.90) m/uL Hgb 7.1 L 6.8 L* (13.0-17.5) gm/dL Hct 21.0 L 20.6 L (39.0-53.0) % Neutrophils # 8.2 H (1.3-7.7) k/uL Chloride (98-107) mmol/L Calcium (8.4-10.2) mg/dL Crossmatch See Detail 02/10/18 02/10/18 Range/Units 02:21 02:21 WBC (3.8-10.6) k/uL RBC 2.14 L (4.30-5.90) m/uL Hgb 6.4 L* (13.0-17.5) gm/dL Hct 19.5 L* (39.0-53.0) % Neutrophils # (1.3-7.7) k/uL Chloride 110 H (98-107) mmol/L Calcium 8.2 L (8.4-10.2) mg/dL Crossmatch Assessment and Plan (1) GI bleed Narrative/Plan: Possible small bowel source possible colonic status post EGD yesterday with no evidence of peptic ulcer disease or sources of bleeding Current Visit: Yes Status: Acute Code(s): K92.2 - GASTROINTESTINAL HEMORRHAGE, UNSPECIFIED SNOMED Code(s): 60672754 (2) Acute blood loss anemia Narrative/Plan: Worsening hemoglobin receiving blood transfusion without active bleeding Current Visit: Yes Status: Acute Code(s): D62 - ACUTE POSTHEMORRHAGIC ANEMIA SNOMED Code(s): 625261788 (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 Colonoscopy followed by small bowel capsule endoscopy if clinically indicated tomorrow morning. Continue CBC monitoring. The credit operations processor has discussed the risks, benefits and alternative therapies for the above-mentioned procedure and for both sedation/analgesia as well as necessary blood product administration, if indicated, as they pertain to this patient. The patient has indicated understanding and acceptance of the risks and procedures discussed. Assessment and plan a care discussed with Dr. Cuenca
[2018-02-10] MEDS: SODIUM CHLORIDE 0.9% 1,000 ML IV SCH ×2 (10:58→15:35)
[2018-02-10 11:01] LABS: HCT 23.6 % (39.0-53.0); MCH 31.2 pg (25.0-35.0); MCHC 34.5 g/dL (31.0-37.0); MCV 90.3 fL (80.0-100.0); Mean Platelet Volume 7.1; Platelet Count 188 k/uL (150-450); RBC 2.62 m/uL (4.30-5.90); RDW 15.1 % (11.5-15.5); WBC 8.9 k/uL (3.8-10.6)
[2018-02-10 11:08] LABS: HGB 8.1 gm/dL (13.0-17.5)
[2018-02-10] MEDS ORDERED: PEG 3350-NA SULF,BICARB,CL/KCL 4,000 ML BOTTLE PO ONE (15:00)
[2018-02-10 15:53] LABS: HCT 24.1 % (39.0-53.0); HGB 8.2 gm/dL (13.0-17.5); MCH 30.5 pg (25.0-35.0); MCHC 33.9 g/dL (31.0-37.0); MCV 89.8 fL (80.0-100.0); Mean Platelet Volume 8.8; Platelet Count 185 k/uL (150-450); RBC 2.68 m/uL (4.30-5.90); RDW 14.9 % (11.5-15.5); WBC 8.8 k/uL (3.8-10.6)
[2018-02-10 16:27] LABS: Iron Saturation 12.36 (15.00-50.00)
[2018-02-10 21:50] LABS: HCT 26.9 % (39.0-53.0); HGB 9.1 gm/dL (13.0-17.5); MCH 30.8 pg (25.0-35.0); MCHC 33.9 g/dL (31.0-37.0); Mean Platelet Volume 7.9; Platelet Count 234 k/uL (150-450); RBC 2.95 m/uL (4.30-5.90); RDW 14.9 % (11.5-15.5); WBC 10.2 k/uL (3.8-10.6)
[2018-02-11] MEDS: SODIUM CHLORIDE 0.9% 1,000 ML IV SCH ×3 (02:43→23:02)
[2018-02-11 03:37] LABS: HCT 23.6 % (39.0-53.0); HGB 8.2 gm/dL (13.0-17.5); MCH 31.8 pg (25.0-35.0); MCHC 34.7 g/dL (31.0-37.0); MCV 91.6 fL (80.0-100.0); Mean Platelet Volume 7.8; Platelet Count 202 k/uL (150-450); RBC 2.57 m/uL (4.30-5.90)
[2018-02-11 03:52] LABS: ALT 55 U/L (21-72); AST 41 U/L (17-59); Albumin 2.9 g/dL (3.5-5.0); Alkaline Phosphatase 45 U/L (38-126); Anion Gap 9 mmol/L; Blood Urea Nitrogen 8 mg/dL (9-20); Calcium 8.5 mg/dL (8.4-10.2); Carbon Dioxide 27 mmol/L (22-30); Chloride 104 mmol/L (98-107); Glucose 95 mg/dL (74-99); Potassium 3.4 mmol/L (3.5-5.1); Sodium 140 mmol/L (137-145); Total Bilirubin 0.2 mg/dL (0.2-1.3); Total Protein 4.8 g/dL (6.3-8.2)
[2018-02-11] MEDS ORDERED: PROPOFOL 10 MG/ML 20 ML VIAL IV ONE (07:56)
[2018-02-11] MEDS ORDERED: IV FLUID CONTINUATION 1,000 ML IV ONE (07:56)
--- NOTE | 2018-02-11 08:18 | P.PCN ---
Date of Procedure: 02/11/18 Procedure(s) Performed: BRIEF HISTORY: Patient is a 72-year-old pleasant white male, was admitted hospital with severe symptomatic anemia and hemoglobin of 6.8 g/dL. He underwent an upper endoscopy by Dr. Goldberg 2 days ago and was noted to have Louis's esophagus and some gastritis. He is scheduled for colonoscopy to evaluate for loose GI source of bleeding. PROCEDURE PERFORMED: Colonoscopy. PREOPERATIVE DIAGNOSIS: Severe symptomatic anemia and Hemoccult-positive stool. IV sedation per Anesthesia. PROCEDURE: After informed consent was obtained, the patient, was brought into the endoscopy unit. IV sedation was administered by Anesthesia under continuous monitoring. Digital rectal examination was normal. Initially the Olympus CF- 160 flexible video colonoscope was then inserted in the rectum, gradually advanced into the cecum without any difficulty. Careful examination was performed as the scope was gradually being withdrawn. Ileocecal valve and the appendiceal orifice were visualized and appeared normal. Prep was excellent. Mucosa of the cecum, ascending colon, transverse colon, descending colon, sigmoid colon, and rectum appeared normal. Retroflexion was performed in the rectum and no lesions were seen. The patient tolerated the procedure well. IMPRESSION: Normal-appearing colon from rectum to cecum with no evidence of colorectal neoplasia. RECOMMENDATIONS: Findings of this examination were discussed with the patient as well as his family. He will be scheduled for a small bowel capsule endoscopy to investigate further for small bowel source of occult GI blood loss.
[2018-02-11] MEDS: PANTOPRAZOLE 40 MG/10 ML VIAL IV SCH (09:12)
[2018-02-11] MEDS ORDERED: SIMETHICONE 40 MG/0.6 ML DROPS 2,000 MG/30 ML BOTTLE PO ONE (09:40)
--- NOTE | 2018-02-11 10:09 | P.PN ---
Subjective Progress Note Date: 02/11/18 Principal diagnosis: Patient is a 72-year-old male past medical history of Louis's esophagus status post ablation, GERD status post Al fundoplication 2 not currently on any medications, prior GI bleed, hypertension, and asthma who presented to the emergency department with complaints of lightheaded and dizziness. In the ER he underwent an extensive evaluation. On arrival he was tachycardic with a pulse of 1:15 and hypotensive the blood pressure of 68/51. Initial laboratory analysis revealed slight leukocytosis at 15.5 with a hemoglobin of 8.3. Otherwise laboratory analysis was within normal limits. He was transfused 1 unit of packed red blood cells on IV proton aches. He was admitted to the selective care unit for further monitoring. His symptoms resolved despite having slightly lower hemoglobin after 1 unit of packed red cells. His hemoglobin continued to down trend despite no additional bowel movements and he had one additional unit of pRBC. Both EGD and colonoscopy revealed no sources of bleeding there is no evidence of peptic ulcer disease on EGD and colonoscopy was negative for any suggestion of colorectal neoplasia. The patient is scheduled to have a capsule endoscopy to evaluate for sources of occult bleeding Patient feeling good today, denies any abdominal pain or shortness of breath or cough or chest pain. Denies nausea, requesting to have some water complaining of only dry mouth. Patient has recently returned from his colonoscopy No acute events overnight Objective - Vital Signs Vital signs: Vital Signs Temp 98.0 F 02/11/18 08:00 Pulse 66 02/11/18 08:00 Resp 18 02/11/18 04:00 BP 140/66 02/11/18 08:00 Pulse Ox 96 02/11/18 08:00 Intake & Output 02/10/18 02/11/18 02/11/18 18:59 06:59 18:59 Intake Total 200 200 Balance 200 200 Weight 71.8 kg Intake: IV 200 Oral 200 Blood Product 0 Rc As-1 Unit 0 [id number] Other: Voiding Method Urinal # Voids 1 0 # Bowel Movements 1 - Exam Constitutional: No acute distress, conversant, pleasant Eyes: Anicteric sclerae, moist conjunctiva, no lid-lag, PERRLA ENMT: NC/AT,Oropharynx clear, no erythema, exudates Neck:Supple, FROM, no masses, or JVD, No carotid bruits; No thyromegaly Lungs: Clear to auscultation, Clear to percussion, Normal respiratory effort, no accessory muscle use Cardiovascular: Heart regular in rate and rhythm, No murmurs, gallops, or rubs no peripheral edema Abdominal: Soft Nontender, nom distended, no guarding, no rebound or rigidity, Normoactive bowel sounds No hepatomegaly, No splenomegaly, No palpable mass No abdominal wall hernia noted Skin: Normal temperature, tone, texture, turgor, No induration No subcutaneous nodules, No rash, lesions, No ulcers Extremities:No digital cyanosis No clubbing, Pedal pulses intact and symmetrical Radial pulses intact and symmetrical Normal gait and station, No calf tenderness Psychiatric: Alert and oriented to person, place and time, Appropriate affect Intact judgement Neuro: Muscles Strength 5/5 in all 4 extremities, Sensation to light touch grossly present throughout, Cranial nerves II-XII grossly intact. No focal sensory deficits - Labs CBC & Chem 7: 02/11/18 03:12 02/11/18 03:12 Labs: Abnormal Lab Results - Last 24 Hours (Table) 02/10/18 02/10/18 02/10/18 Range/Units 10:33 15:31 21:31 RBC 2.62 L 2.68 L 2.95 L (4.30-5.90) m/uL Hgb 8.1 L D 8.2 L 9.1 L (13.0-17.5) gm/dL Hct 23.6 L 24.1 L 26.9 L (39.0-53.0) % Potassium (3.5-5.1) mmol/L BUN (9-20) mg/dL Total Protein (6.3-8.2) g/dL Albumin (3.5-5.0) g/dL 02/11/18 02/11/18 Range/Units 03:12 03:12 RBC 2.57 L (4.30-5.90) m/uL Hgb 8.2 L (13.0-17.5) gm/dL Hct 23.6 L (39.0-53.0) % Potassium 3.4 L (3.5-5.1) mmol/L BUN 8 L (9-20) mg/dL Total Protein 4.8 L (6.3-8.2) g/dL Albumin 2.9 L (3.5-5.0) g/dL Assessment and Plan Plan: GI bleed -EGD with no ulcers or sings of bleeding -Continue with Protonix - on regular diet -Serial H&H -GI recs appreciated, we'll follow-up on capsule endoscopy results Acute blood loss anemia due to above-symptomatic -Status post 2 unit packed red blood cells -Continue with serial H&H Hypertension -Norvasc and lisinopril on hold due to low blood pressure ER Dyslipidemia -Statin History of Louis's esophagus -GI recommendations
[2018-02-11 10:37] LABS: HCT 24.8 % (39.0-53.0); HGB 8.4 gm/dL (13.0-17.5); MCH 30.7 pg (25.0-35.0); MCHC 33.7 g/dL (31.0-37.0); MCV 91.2 fL (80.0-100.0); Mean Platelet Volume 7.7; Platelet Count 207 k/uL (150-450); RBC 2.72 m/uL (4.30-5.90); RDW 15.2 % (11.5-15.5); WBC 7.4 k/uL (3.8-10.6)
[2018-02-11 12:30] VITALS: BMI 25.5
[2018-02-11] MEDS: ATORVASTATIN 10 MG TAB PO SCH (14:56)
[2018-02-12 04:39] VITALS: TEMP 98.4
[2018-02-12] MEDS: SODIUM CHLORIDE 0.9% 1,000 ML IV SCH (08:41)
[2018-02-12] MEDS: ATORVASTATIN 10 MG TAB PO SCH (08:41)
[2018-02-12] MEDS: PANTOPRAZOLE 40 MG/10 ML VIAL IV SCH (08:41)
[2018-02-12 08:42] LABS: Basophils % (A) 0 %; Eosinophils # (A) 0.2 k/uL (0-0.7); Eosinophils % (A) 3 %; HGB 8.5 gm/dL (13.0-17.5); Lymphocytes # (A) 1.1 k/uL (1.0-4.8); Lymphocytes % (A) 15 %; MCH 30.8 pg (25.0-35.0); MCHC 33.8 g/dL (31.0-37.0); Mean Platelet Volume 7.5; Monocytes # (A) 0.3 k/uL (0-1.0); Monocytes % (A) 4 %; Neutrophils # (A) 5.3 k/uL (1.3-7.7); Neutrophils % (A) 77 %; Platelet Count 238 k/uL (150-450); RBC 2.75 m/uL (4.30-5.90); RDW 14.9 % (11.5-15.5); WBC 6.9 k/uL (3.8-10.6)
[2018-02-12 08:45] VITALS: BP 117/68; PULSE 77
[2018-02-12 08:52] LABS: Anion Gap 11 mmol/L; Blood Urea Nitrogen 10 mg/dL (9-20); Calcium 8.7 mg/dL (8.4-10.2); Carbon Dioxide 25 mmol/L (22-30); Chloride 106 mmol/L (98-107); Glucose 153 mg/dL (74-99); Potassium 3.6 mmol/L (3.5-5.1); Sodium 142 mmol/L (137-145)
--- NOTE | 2018-02-12 08:54 | PN ---
PROGRESS NOTE DATE OF SERVICE: 02/12/18. REQUESTING PHYSICIAN: Dr. Tolbert HISTORY OF PRESENT ILLNESS: The patient is a 72-year-old pleasant white male admitted to the hospital with severe symptomatic anemia and hemoglobin is 6.5 requiring blood transfusion. He underwent an upper endoscopy as well as colonoscopy which revealed Louis's esophagus and gastritis but colonoscopy was normal. 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 In the meantime, patient is doing well. He denies any symptoms. PHYSICAL EXAMINATION: Appears comfortable in no apparent distress. VITAL SIGNS: Stable. Blood pressure is 119/66, pulse rate 68, temperature 98.5. HEENT examination unremarkable. Conjunctivae pink. Sclerae anicteric. Oral cavity no lesions. Neck no jugular venous distention or lymph node enlargement. Chest was clear to auscultation. HEART: Regular rate and rhythm rate. ABDOMEN: Soft. Bowel sounds are positive. No organomegaly. Extremities no pedal edema. Skin no rashes. NEUROLOGIC: Alert and oriented x3. No focal deficits. LABS: From today hemoglobin is 8.4, WBC 7.4, and platelets are 207. IMPRESSION: Severe symptomatic anemia with some dark stools. EGD 2 days ago showed Louis's esophagus. Colonoscopy yesterday was unremarkable. 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 The rest of the small bowel appeared normal. Most likely we are dealing with occult blood loss related to small bowel angioectasia. RECOMMENDATION: 1. Start iron supplements. 2. The patient can be discharged home today. 3. Monitor CBC on a periodic basis. Thank you for this consultation. MMODL / IJN: [id number] /
[2018-02-12] MEDS ORDERED: FERROUS SULFATE 325 MG TAB PO SCH (09:00)
--- NOTE | 2018-02-12 09:43 | P.DS ---
Providers Date of admission: 02/08/18 13:44 Expected date of discharge: 02/12/18 Attending physician: Kitty Cali MD Consults: 02/08/18 13:43 Consult Physician Urgent Consulting Provider: Aristides Goldberg Consult Reason/Comments: GI bleed Do you want consulting provider notified?: Yes Primary care physician: Salas Tolbert - Discharge Diagnosis(es) (1) Acute blood loss anemia Current Visit: Yes Status: Acute (2) GI bleed Current Visit: Yes Status: Acute (3) Iron (Fe) deficiency anemia Current Visit: No Status: Acute (4) Louis esophagus Current Visit: No Status: Chronic Hospital Course: The patient is a 72-year-old male past medical history of Louis's esophagus status post ablation, GERD status post Al fundoplication 2 not currently on any medications, prior GI bleed, hypertension, and asthma who presented to the emergency department with complaints of lightheaded and dizziness. In the ER he underwent an extensive evaluation. On arrival he was tachycardic with a pulse of 115 and hypotensive the blood pressure of 68/51. Initial laboratory analysis revealed slight leukocytosis at 15.5 with a hemoglobin of 8.3 due to GI bleed, symptomatic acute blood loss anemia. Otherwise laboratory analysis was within normal limits. He was transfused 1 unit of packed red blood cells on IV protonix. He was admitted to the selective care unit for further monitoring. His symptoms resolved despite having slightly lower hemoglobin after 1 unit of packed red cells. His hemoglobin continued to down trend despite no additional bowel movements and he had one additional unit of pRBC. Both EGD and colonoscopy revealed no sources of bleeding there is no evidence of peptic ulcer disease on EGD and colonoscopy was negative for any suggestion of colorectal neoplasia. Subsequent capsule endoscopy revealed 2 areas of mild occult bleeding per nursing as conveyed by Dr. Cuenca, actual results not available. The patient was subsequently discharged in stable condition with hemoglobin holding at 8.5g with oral iron replacement and Protonix. This discharge process took approximately 35 minutes. Patient Condition at Discharge: Good Plan - Discharge Summary Discharge Rx Participant: No New Discharge Prescriptions: New Ferrous Sulfate [Iron (65 MG Elemental)] 325 mg PO BID-W/MEALS #60 tab Pantoprazole [Protonix] 40 mg PO DAILY #30 tablet.dr Continue Simvastatin [Zocor] 20 mg PO QAM amLODIPine BESYLATE [Norvasc] 5 mg PO QAM Lisinopril [Zestril] 10 mg PO DAILY Discharge Medication List Lisinopril [Zestril] 10 mg PO DAILY 08/16/14 [History] Simvastatin [Zocor] 20 mg PO QAM 08/16/14 [History] amLODIPine BESYLATE [Norvasc] 5 mg PO QAM 08/16/14 [History] Ferrous Sulfate [Iron (65 MG Elemental)] 325 mg PO BID-W/MEALS #60 tab 02/12/18 [Rx] Pantoprazole [Protonix] 40 mg PO DAILY #30 tablet. 02/12/18 [Rx] Follow up Appointment(s)/Referral(s): Yuliya Cuneca MD [STAFF PHYSICIAN] - 2 Weeks Salas Tolbert MD [Primary Care Provider] - 1-2 days Discharge Disposition: HOME SELF-CARE
== END 2018-02-12 11:37 | disposition home or self-care (01) | DRG 378 ==
LOC: EC 11:43 → 6SEL 13:44
PROVIDERS: ADMIT Internal Medicine; ATTEND Internal Medicine
PROC: 30230N1 Transfusion of Nonautologous Red Blood Cells into Peripheral Vein, Open Approach (ICD-10-PCS; principal; 2018-02-08)
PROC: 0DB28ZX Excision of Middle Esophagus, Via Natural or Artificial Opening Endoscopic, Diagnostic (ICD-10-PCS; 2018-02-09)
PROC: 0DB78ZX Excision of Stomach, Pylorus, Via Natural or Artificial Opening Endoscopic, Diagnostic (ICD-10-PCS; 2018-02-09)
PROC: 0DJD8ZZ Inspection of Lower Intestinal Tract, Via Natural or Artificial Opening Endoscopic (ICD-10-PCS; 2018-02-11)
PROC: 0DJD8ZZ Inspection of Lower Intestinal Tract, Via Natural or Artificial Opening Endoscopic (ICD-10-PCS; 2018-02-11)
DX: K31.811 Angiodysplasia of stomach and duodenum with bleeding (principal); D62 Acute posthemorrhagic anemia; I95.9 Hypotension, unspecified; E86.0 Dehydration; D50.0 Iron deficiency anemia secondary to blood loss (chronic); K22.70 Barrett's esophagus without dysplasia; K21.9 Gastro-esophageal reflux disease without esophagitis; I10 Essential (primary) hypertension; J45.909 Unspecified asthma, uncomplicated; E78.5 Hyperlipidemia, unspecified; H26.9 Unspecified cataract; K29.70 Gastritis, unspecified, without bleeding; K29.80 Duodenitis without bleeding; N42.9 Disorder of prostate, unspecified; K44.9 Diaphragmatic hernia without obstruction or gangrene; Z79.899 Other long term (current) drug therapy; Z90.49 Acquired absence of other specified parts of digestive tract; Z87.39 Personal history of other diseases of the musculoskeletal system and connective tissue; Z87.891 Personal history of nicotine dependence; Z88.2 Allergy status to sulfonamides; Z82.49 Family history of ischemic heart disease and other diseases of the circulatory system; Z82.3 Family history of stroke; Z80.0 Family history of malignant neoplasm of digestive organs; Z80.9 Family history of malignant neoplasm, unspecified
CPT/HCPCS: 36415; 43239; 45378; 80048; 80053; 82272; 82550; 82553; 82728; 83540; 83550; 83735; 84100; 84484; 85025; 85027; 85610; 85730; 86850; 86900; 86901; 86920; 88305; 91110; 93005; 94760; 96361; 96374; 99291

== ENCOUNTER → 2020-02-18 | Outpatient (CLI) | payer MEDICARE | END | disposition home or self-care (01) | LOC: LABWHC1 12:13 | PROVIDERS: ATTEND Internal Medicine Gastroenterology | DX: U07.1 COVID-19 (principal) | CPT/HCPCS: 87635 ==

== ENCOUNTER → 2020-02-20 | Day surgery (SDC) | payer MEDICARE ==
[2020-02-19 13:25] VITALS: BMI 25.0
[~2020-02-20] MED LIST: LACTATED RINGERS 1,000 ML IV ONE; LACTATED RINGERS 1,000 ML IV SCH; LIDOCAINE 1% (10MG/ML) FOR IV START INTRADERMA PRN; LIDOCAINE 1% INJ 10MG/ML (20 ML MDV) ONE; MIDAZOLAM 2 MG/2 ML VIAL ONE; PROPOFOL 10 MG/ML 20 ML VIAL IV ONE; fentaNYL (PF) 50 MCG/ML 2 ML AMP ONE
[2020-02-20 09:14] VITALS: RESP 18; TEMP 97.8
--- NOTE | 2020-02-20 09:59 | P.PCN ---
Date of Procedure: 02/20/20 Procedure(s) Performed: BRIEF HISTORY: Patient is a 74-year-old, pleasant, male, scheduled for an upper endoscopy as a part of surveillance of long-standing history of GERD and Louis's esophagus.. He remains on Protonix 40 mg daily and denies any symptoms. PROCEDURE PERFORMED: Esophagogastroduodenoscopy with multiple biopsies. PREOPERATIVE DIAGNOSIS: GERD/long segment Louis's esophagus. IV sedation per anesthesia. PROCEDURE: After informed consent was obtained, the patient was brought into the endoscopy unit. IV sedation was administered by Anesthesia under continuous monitoring. Initially the Olympus GIF-140 video endoscope was inserted into the mouth. Esophagus intubated without any difficulty. It was gradually advanced into the stomach and duodenum and carefully examined. The bulb and the second part of the duodenum appeared normal. The scope at this time was withdrawn to the stomach, adequately insufflated with air, and upon careful examination, mucosa of the antrum, body, cardia and the fundus appeared normal. The scope was then withdrawn into the esophagus. There was a small to moderate size hiatal hernia noted. The GE junction was located at 35 cm from the incisors. There was a long segment of Louis's esophagus extending from 25-35 cm from the incisors with normal appearing mucosa and no nodularity or ulcerations identified. Multiple biopsies were done from the segment of Louis's esophagus at every 2 cm into well. The proximal esophagus appeared normal. There were no erosions or ulcerations seen and the patient tolerated the procedure well. IMPRESSION: 1. Long segment Louis's esophagus extending from 25-35 cm from the incisors status post multiple biopsies to rule out dysplasia. 2. Moderate size hiatal hernia. RECOMMENDATIONS: The findings of this examination were discussed with the patient as well as his family. He will remain on Protonix 40 mg daily. He will continue with Protonix 40 mg daily and follow antireflux measures. He'll be seen in office in 6 months.
[2020-02-20 10:15] VITALS: BP 126/70; PULSE 60
== END ==
LOC: ORWHC2ENDO 08:59
PROVIDERS: ATTEND Internal Medicine Gastroenterology
DX: K22.70 Barrett's esophagus without dysplasia (principal); K21.9 Gastro-esophageal reflux disease without esophagitis; K44.9 Diaphragmatic hernia without obstruction or gangrene; I10 Essential (primary) hypertension; Z88.2 Allergy status to sulfonamides; Z79.899 Other long term (current) drug therapy
CPT/HCPCS: 88305; 43239; J2250; J2001; J3010; J2704

== ENCOUNTER 2021-07-19 13:54 | Emergency (ER) | payer MEDICARE ==
[2021-07-19 16:11] VITALS: RESP 20
[2021-07-19 16:52] LABS: Basophils % (A) 0 %; Eosinophils % (A) 0 %; HGB 15.9 gm/dL (13.0-17.5); Lymphocytes # (A) 0.7 k/uL (1.0-4.8); Lymphocytes % (A) 13 %; MCV 86.2 fL (80.0-100.0); Mean Platelet Volume 7.6; Monocytes # (A) 0.4 k/uL (0-1.0); Monocytes % (A) 8 %; Neutrophils # (A) 4.5 k/uL (1.3-7.7); Neutrophils % (A) 78 %; Platelet Count 327 k/uL (150-450); RBC 5.11 m/uL (4.30-5.90); RDW 12.7 % (11.5-15.5); WBC 5.8 k/uL (3.8-10.6)
[2021-07-19 16:56] LABS: ALT 26 U/L (4-49); AST 37 U/L (17-59); African American GFR (CKD) >90 (>60 ml/min/1.73 sqM); Albumin 4.9 g/dL (3.5-5.0); Alkaline Phosphatase 92 U/L (38-126); Anion Gap 13 mmol/L; Blood Urea Nitrogen 9 mg/dL (9-20); Calcium 10.2 mg/dL (8.4-10.2); Carbon Dioxide 24 mmol/L (22-30); Chloride 92 mmol/L (98-107); Glucose 128 mg/dL (74-99); Magnesium 2.4 mg/dL (1.6-2.3); Non-African American GFR(CKD) >90 (>60 ml/min/1.73 sqM); Potassium 4.4 mmol/L (3.5-5.1); Sodium 129 mmol/L (137-145); Total Bilirubin 0.4 mg/dL (0.2-1.3); Total Protein 8.1 g/dL (6.3-8.2)
[2021-07-19 17:12] LABS: INR 0.9 (<1.2); Prothrombin Time 9.8 sec (9.0-12.0)
[2021-07-19 17:16] LABS: Partial Thromboplastin Time 21.7 sec (22.0-30.0)
--- NOTE | 2021-07-19 17:32 | ED ---
Dizziness HPI - General Chief Complaint: Syncope Stated Complaint: Light headed episode Time Seen by Provider: 07/19/21 15:10 Source: patient Mode of arrival: ambulatory Limitations: no limitations - History of Present Illness Initial Comments: 75-year-old male presents to the emergency department for a near-syncopal episode at home. He states that he was harvesting honey at home when he began feeling as if he was going to pass out. He states he sat down and started to feel better. EMS was called. They did obtain vitals an Accu-Chek on the patie nt. Everything was normal and the patient wanted to stay at home. They did recommend that he come in to the emergency department for further stress testing for which the patient. He denies having any chest pain, shortness of breath, dizziness prior to the incident. Denies any previous history of cardiac or pulmonary disease. No recent illnesses. Denies any headache or fevers. Patient admits to significant social stress over the past 2 months. Denies any changes in his bowel or bladder habits. No black or bloody stools. Has had good oral intake. - Related Data Home Medications Medication Instructions Recorded Confirmed Simvastatin [Zocor] 20 mg PO HS 08/16/14 07/19/21 amLODIPine BESYLATE [Norvasc] 5 mg PO DAILY 08/16/14 07/19/21 lisinopriL [Zestril] 10 mg PO DAILY 08/16/14 07/19/21 Black Current Oil 1 tab PO DAILY 07/19/21 07/19/21 [place]-3 Fatty Acids/Fish Oil [Fish 1 cap PO DAILY 07/19/21 07/19/21 Oil 1,000 mg Softgel] Ubidecarenone [Co Q-10] 100 mg PO DAILY 07/19/21 07/19/21 Previous Rx's Medication Instructions Recorded Pantoprazole [Protonix] 40 mg PO DAILY #30 tablet. 02/12/18 Allergies Allergy/AdvReac Type Severity Reaction Status Date / Time Sulfa (Sulfonamide Allergy "BLEEDING" Verified 07/19/21 16:41 Antibiotics) Review of Systems ROS Statement: Those systems with pertinent positive or pertinent negative responses have been documented in the HPI. ROS Other: All systems not noted in ROS Statement are negative. Past Medical History Past Medical History: Asthma, GERD/Reflux, Hyperlipidemia, Hypertension, Prostate Disorder Additional Past Medical History / Comment(s): GRACIA'S ESOPHAGUS,recurrent diaphragmatic hernia,Hx of ANEMIA,past gout,beginnings of cataracts History of Any Multi-Drug Resistant Organisms: None Reported Past Surgical History: Cholecystectomy, Tonsillectomy Additional Past Surgical History / Comment(s): AT [facility] FOR TX OF GRACIA'S ESOPHAGUS (ablation/dilation).diaphragmatic hernia/ CARINE fundoplication, hydrocele surgery,2015 had lap lysis of adhesions ,takedown of carine funoplasty,lap paraesophageal diapragmatic hernia repair,lap carine fundplasty.egd Past Anesthesia/Blood Transfusion Reactions: No Reported Reaction Additional Past Anesthesia/Blood Transfusion Reaction / Comment(s): STATED "TWICE AFTER PROCEDURES TO TX GRACIA'S ESOPHAGUS AT [facility] HAD FEELINGS OF BEING HOT AND COLD"-mild per pt Past Psychological History: No Psychological Hx Reported Smoking Status: Former smoker Past Alcohol Use History: Daily Past Drug Use History: None Reported - Past Family History Father Family Medical History: Cancer Additional Family Medical History / Comment(s): colon Mother Family Medical History: Coronary Artery Disease (CAD), CVA/TIA Brother(s) Family Medical History: Cancer General Exam Limitations: no limitations General appearance: alert, in no apparent distress Head exam: Present: atraumatic, normocephalic, normal inspection Eye exam: Present: normal appearance, PERRL, EOMI. Absent: scleral icterus, conjunctival injection, periorbital swelling ENT exam: Present: normal exam, mucous membranes moist Neck exam: Present: normal inspection. Absent: tenderness, meningismus, lymphadenopathy Respiratory exam: Present: normal lung sounds bilaterally. Absent: respiratory distress, wheezes, rales, rhonchi, stridor Cardiovascular Exam: Present: regular rate, normal rhythm, normal heart sounds. Absent: systolic murmur, diastolic murmur, rubs, gallop, clicks GI/Abdominal exam: Present: soft, normal bowel sounds. Absent: distended, ten derness, guarding, rebound, rigid Extremities exam: Present: normal inspection, full ROM, normal capillary refill. Absent: tenderness, pedal edema, joint swelling, calf tenderness Back exam: Present: normal inspection Neurological exam: Present: alert, oriented X3, CN II-XII intact Psychiatric exam: Present: normal affect, normal mood Skin exam: Present: warm, dry, intact, normal color. Absent: rash Course Vital Signs 07/19/21 07/19/21 07/19/21 15:08 15:45 16:35 Temperature 97.9 F Pulse Rate 66 67 Pulse Rate [ 61 Sitting Sorting Machine Operator] Pulse Rate [ 65 Standing Sorting Machine Operator ] Pulse Rate [ 60 Supine Sorting Machine Operator] Respiratory 17 20 Rate Blood Pressure 134/78 122/72 Blood Pressure 124/75 [Left Arm Sitting] Blood Pressure 133/79 [Left Arm Standing] Blood Pressure 123/73 [Left Arm Supine] O2 Sat by Pulse 96 98 Oximetry 07/19/21 18:10 Temperature 98.0 F Pulse Rate 62 Pulse Rate [ Sitting Sorting Machine Operator] Pulse Rate [ Standing Sorting Machine Operator ] Pulse Rate [ Supine Sorting Machine Operator] Respiratory 20 Rate Blood Pressure 132/86 Blood Pressure [Left Arm Sitting] Blood Pressure [Left Arm Standing] Blood Pressure [Left Arm Supine] O2 Sat by Pulse 97 Oximetry EKG Findings - EKG Comments: EKG Findings:: EKG demonstrates sinus rhythm with first-degree AV block. Rate of 62. MN interval 214. QRS 92. QTC of 403. Q wave lead 3 with an inverted T-wave. No acute ST segment elevations. No high degree block Medical Decision Making - Medical Decision Making The patient is placed into room 10. A thorough history and physical exam was performed. This did ask her obtained and are normal. Laboratory studies are conducted. 12-lead EKG was performed. Patient went for chest x-ray. Laboratory studies were reviewed and demonstrated a sodium of 129. Patient is chronically hyponatremic. Chest x-ray demonstrates no acute process. Results are discussed the patient. He is adamant that he wants to go home at this time. Patient instructed to follow up with his primary care doctor in 2-4 days. He will need an echo of his heart. Stress that he return to the emergency room for any new or worsening symptoms. Patient was in agreement with this. Some was at bedside and agree. He was discharged home in stable condition - Lab Data Result diagrams: 07/19/21 16:34 07/19/21 16:34 Lab Results 07/19/21 07/19/21 07/19/21 Range/Units 16:34 16:34 16:34 WBC 5.8 (3.8-10.6) k/uL RBC 5.11 (4.30-5.90) m/uL Hgb 15.9 (13.0-17.5) gm/dL Hct 44.0 (39.0-53.0) % MCV 86.2 (80.0-100.0) fL MCH 31.0 (25.0-35.0) pg MCHC 36.0 (31.0-37.0) g/dL RDW 12.7 (11.5-15.5) % Plt Count 327 (150-450) k/uL MPV 7.6 Neutrophils % 78 % Lymphocytes % 13 % Monocytes % 8 % Eosinophils % 0 % Basophils % 0 % Neutrophils # 4.5 (1.3-7.7) k/uL Lymphocytes # 0.7 L (1.0-4.8) k/uL Monocytes # 0.4 (0-1.0) k/uL Eosinophils # 0.0 (0-0.7) k/uL Basophils # 0.0 (0-0.2) k/uL PT 9.8 (9.0-12.0) sec INR 0.9 (<1.2) APTT 21.7 L (22.0-30.0) sec Sodium 129 L (137-145) mmol/L Potassium 4.4 (3.5-5.1) mmol/L Chloride 92 L (98-107) mmol/L Carbon Dioxide 24 (22-30) mmol/L Anion Gap 13 mmol/L BUN 9 (9-20) mg/dL Creatinine 0.65 L (0.66-1.25) mg/dL Est GFR (CKD-EPI)AfAm >90 (>60 ml/min/1.73 sqM) Est GFR (CKD-EPI)NonAf >90 (>60 ml/min/1.73 sqM) Glucose 128 H (74-99) mg/dL Calcium 10.2 (8.4-10.2) mg/dL Magnesium 2.4 H (1.6-2.3) mg/dL Total Bilirubin 0.4 (0.2-1.3) mg/dL AST 37 (17-59) U/L ALT 26 (4-49) U/L Alkaline Phosphatase 92 (38-126) U/L Troponin I (0.000-0.034) ng/mL Total Protein 8.1 (6.3-8.2) g/dL Albumin 4.9 (3.5-5.0) g/dL TSH 3.050 (0.465-4.680) mIU/L 07/19/21 Range/Units 16:34 WBC (3.8-10.6) k/uL RBC (4.30-5.90) m/uL Hgb (13.0-17.5) gm/dL Hct (39.0-53.0) % MCV (80.0-100.0) fL MCH (25.0-35.0) pg MCHC (31.0-37.0) g/dL RDW (11.5-15.5) % Plt Count (150-450) k/uL MPV Neutrophils % % Lymphocytes % % Monocytes % % Eosinophils % % Basophils % % Neutrophils # (1.3-7.7) k/uL Lymphocytes # (1.0-4.8) k/uL Monocytes # (0-1.0) k/uL Eosinophils # (0-0.7) k/uL Basophils # (0-0.2) k/uL PT (9.0-12.0) sec INR (<1.2) APTT (22.0-30.0) sec Sodium (137-145) mmol/L Potassium (3.5-5.1) mmol/L Chloride (98-107) mmol/L Carbon Dioxide (22-30) mmol/L Anion Gap mmol/L BUN (9-20) mg/dL Creatinine (0.66-1.25) mg/dL Est GFR (CKD-EPI)AfAm (>60 ml/min/1.73 sqM) Est GFR (CKD-EPI)NonAf (>60 ml/min/1.73 sqM) Glucose (74-99) mg/dL Calcium (8.4-10.2) mg/dL Magnesium (1.6-2.3) mg/dL Total Bilirubin (0.2-1.3) mg/dL AST (17-59) U/L ALT (4-49) U/L Alkaline Phosphatase (38-126) U/L Troponin I <0.012 (0.000-0.034) ng/mL Total Protein (6.3-8.2) g/dL Albumin (3.5-5.0) g/dL TSH (0.465-4.680) mIU/L Disposition Clinical Impression: Pre-syncope, Hyponatremia Disposition: HOME SELF-CARE Condition: Stable Instructions (If sedation given, give patient instructions): Near Syncope (ED) Additional Instructions: Please follow up with your PCP. You need to have an Echo performed. Return to the ED for any new or worsening symptoms. Is patient prescribed a controlled substance at d/c from ED?: No Referrals: Karla Charles MD [Primary Care Provider] - 1-2 days Time of Disposition: 17:47
--- NOTE | 2021-07-19 17:37 | XR ---
EXAMINATION TYPE: XR chest 2V DATE OF EXAM: 07/19/2021 COMPARISON: 11/09/2015 HISTORY: Syncope TECHNIQUE: 2 views FINDINGS: Heart and mediastinum are normal. Lungs are clear. Diaphragm is normal. Bony thorax appears normal. IMPRESSION: Normal chest. No change.
[2021-07-19 18:12] VITALS: BP 132/86; PULSE 62; TEMP 98
== END 2021-07-19 18:11 | disposition home or self-care (01) ==
LOC: EC 13:54
DX: R55 Syncope and collapse (principal); E87.1 Hypo-osmolality and hyponatremia; I10 Essential (primary) hypertension; J45.909 Unspecified asthma, uncomplicated; K21.9 Gastro-esophageal reflux disease without esophagitis; E78.5 Hyperlipidemia, unspecified; Z90.49 Acquired absence of other specified parts of digestive tract; Z88.2 Allergy status to sulfonamides; Z90.89 Acquired absence of other organs; Z87.891 Personal history of nicotine dependence; Z87.19 Personal history of other diseases of the digestive system
CPT/HCPCS: 36415; 71046; 80053; 83735; 84443; 84484; 85025; 85610; 85730; 93005; 99284